=== PATIENT | female | born 1990 ===

== ENCOUNTER 2020-01-08 09:47 | Emergency (ER) | payer SELFPAY ==
--- NOTE | 2020-01-08 11:28 | Emergency Department Report ---
HPI - General Chief Complaint: Chest Pain Time Seen by Provider: 01/08/20 11:11 - HPI HPI: Room 7 The patient is a 29-year-old female present with a chief complaint of chest pain and left-sided numbness. Patient states her symptoms began 3 days ago with pain in the left chest. Patient states she also had a headache in addition to left upper extremity and left lower extremity numbness. Patient states her numbness is greatest in the left arm compared to the left leg. Patient denies dysarthria. Patient gives her pain a score of 10/10 ED Past Medical Hx - Past Medical History Previous Medical History?: No - Surgical History Past Surgical History?: No - Family History Family history: no significant - Social History Smoking Status: Never Smoker Substance Use Type: None (Denies illicit drug use) ED Review of Systems ROS: Stated complaint: STOMACH PAIN, CHEST PAIN Other details as noted in HPI Constitutional: no symptoms reported Eyes: denies: eye pain ENT: denies: throat pain Respiratory: no symptoms reported Cardiovascular: chest pain Endocrine: no symptoms reported Gastrointestinal: denies: abdominal pain Musculoskeletal: denies: back pain Neurological: headache, numbness Physical Exam - Physical Exam Vital Signs: Vital Signs 01/08/20 01/08/20 10:02 11:14 Temperature 99.4 F Pulse Rate 69 Respiratory 16 16 Rate Blood Pressure 110/75 O2 Sat by Pulse 100 Oximetry Physical Exam: GENERAL: The patient is well-developed well-nourished female sitting on stretcher not appearing to be in acute distress. [] HEENT: Normocephalic. Atraumatic. Extraocular motions are intact. Patient has moist mucous membranes. NECK: Supple. Trachea midline CHEST/LUNGS: Clear to auscultation. There is no respiratory distress noted. HEART/CARDIOVASCULAR: Regular. There is no tachycardia. There is no gallop rub or murmur. ABDOMEN: Abdomen is soft, nontender. Patient has normal bowel sounds. There is no abdominal distention. SKIN: There is no rash. There is no edema. There is no diaphoresis. NEURO: The patient is awake, alert, and oriented. The patient is cooperative. The patient has normal speech. Cranial nerves II through XII grossly intact, no drift. Patient complains of decreased sensation to the left upper and lower extremity MUSCULOSKELETAL:There is no evidence of acute injury. ED Course Vital Signs 01/08/20 01/08/20 10:02 11:14 Temperature 99.4 F Pulse Rate 69 Respiratory 16 16 Rate Blood Pressure 110/75 O2 Sat by Pulse 100 Oximetry - Consultations Consultation #1: 01/08/20 14:35 Hospitalist made aware of patient and pending CTs. ED Medical Decision Making - Lab Data Result diagrams: 01/08/20 12:05 01/08/20 12:05 - EKG Data -: EKG Interpreted by Me EKG shows normal: sinus rhythm Rate: normal - EKG Data When compared to previous EKG there are: previous EKG unavailable Interpretation: other (No ischemic changes seen) - Differential Diagnosis Complex migraine, costochondritis, PE, pericarditis, CVA Critical care attestation.: If time is entered above; I have spent that time in minutes in the direct care of this critically ill patient, excluding procedure time. ED Disposition Clinical Impression: Chest pain, Left sided numbness Disposition: OP ADMIT IP TO THIS HOSP Is pt being admited?: Yes Does the pt Need Aspirin: Yes Condition: Fair Instructions: Chest Pain (ED)
[2020-01-08 13:01] LABS: Basophils % (Auto) 0.7 % (0.0-1.8); Eosinophils # (Auto) 0.5 K/mm3 (0.0-0.4); Eosinophils % (Auto) 8.7 % (0.0-4.3); Lymphocytes # (Auto) 1.6 K/mm3 (1.2-5.4); Lymphocytes % (Auto) 27.2 % (13.4-35.0); Mean Corpuscular HGB Conc 30 % (30-34); Monocytes # (Auto) 0.3 K/mm3 (0.0-0.8); Monocytes % (Auto) 5.4 % (0.0-7.3); Platelet Count 327 K/mm3 (140-440); Red Blood Count 5.52 M/mm3 (3.65-5.03); Red Cell Distribution Width 19.5 % (13.2-15.2)
[2020-01-08 13:04] LABS: BUN/Creatinine Ratio 20; Blood Urea Nitrogen 8 mg/dL (7-17); Calcium 9.3 mg/dL (8.4-10.2); Hemolysis Index 8
[2020-01-08 13:23] LABS: Hematocrit 32.6 % (30.3-42.9); Hemoglobin 9.7 gm/dl (10.1-14.3); Mean Corpuscular Volume 59 fl (79-97)
[2020-01-08 13:25] LABS: Bacteria,Urine 1+ /HPF (Negative); Bilirubin,Urine NEG (Negative); Blood,Urine SM (Negative); Color,Urine Yellow (Yellow); Protein,Urine <15 mg/dL mg/dL (Negative); Urobilinogen,Urine < 2.0 mg/dL (<2.0)
--- NOTE | 2020-01-08 14:50 | Cat Scan Report ---
CT HEAD WITHOUT CONTRAST INDICATION / CLINICAL INFORMATION: Left-sided numbness. TECHNIQUE: All CT scans at this location are performed using CT dose reduction for ALARA by means of automated e xposure control. COMPARISON: None available. FINDINGS: HEMORRHAGE: No evidence of intracranial hemorrhage or extra-axial fluid collection. EXTRA-AXIAL SPACES: Cortical sulci, sylvian fissures and basilar cisterns have an unremarkable appear ance. VENTRICULAR SYSTEM: The ventricular system is of normal size and configuration. CEREBRAL PARENCHYMA: No areas of abnormal brain parenchymal attenuation are identified. There is no i ndication of recent infarction. MIDLINE SHIFT OR HERNIATION: There is no mass effect. CEREBELLUM / BRAINSTEM: Brainstem and cerebellum have an unremarkable appearance. INTRACRANIAL VESSELS:No abnormalities are identified on this noncontrast head CT. ORBITS: visualized portions of the orbits have an unremarkable appearance. SOFT TISSUES of HEAD: No significant abnormality. CALVARIUM: Evaluation of bone windows reveals no abnormalities. PARANASAL SINUSES / MASTOID AIR CELLS: Paranasal sinuses are free from inflammatory mucosal disease. Mastoid air cells are normally pneumatized. ADDITIONAL FINDINGS: None. IMPRESSION: 1. No acute intracranial abnormality. Signer Name: Slade Rosenbaum MD Signed: 01/08/2020 2:46 PM Workstation Name: [id number]
--- NOTE | 2020-01-08 15:29 | Cat Scan Report ---
CTA CHEST WITH CONTRAST INDICATION : Left chest pain. TECHNIQUE: Axial imaging performed through the chest, with contrast bolus timing set to maximize opa cification of the pulmonary arteries. Sagittal and coronal reformatted images. 3-plane MIP reformatte d images were obtained. All CT scans at this location are performed using CT dose reduction for ALAR A by means of automated exposure control. 100 mL of intravenous contrast administered. COMPARISON: None FINDINGS: Bolus: Contrast bolus timing is adequate. PTE: No filling defect is present to suggest PTE. Mediastinum: Heart and great vessels appear normal. No pathologic mediastinal adenopathy. Lungs: Lungs are clear. Bones: Degenerative changes in the spine with nothing acute. Upper abdomen: Limited imaging of the upper abdomen shows nothing acute. IMPRESSION: Negative for PTE. Clear lungs. Signer Name: Te Tsai Jr, MD Signed: 01/08/2020 3:25 PM Workstation Name: [id number]
[2020-01-08 17:05] VITALS: BP 104/69
[2020-01-08] MEDS ORDERED: FAMOTIDINE 20 MG/2 ML INJ IV ONE (18:10)
[2020-01-08] MEDS ORDERED: traMADol 50 MG TAB PO ONE (18:10)
[2020-01-08] MEDS ORDERED: ONDANSETRON 4 MG/2 ML INJ IV ONE (18:10)
--- NOTE | 2020-01-08 18:17 | Emergency Department Report ---
Blank Doc - Documentation Documentation: Patient was signed out to me by Dr. Kang to admit for chest pain work-up after CT head and CTA chest result. Case discussed with hospitalist who request the ER reassessment of the patient given that she has no cardiac risk factors. tenon machine operator Lianne provided translation for history and physical examination as well as results. For the last 3 to 4 days patient has had nausea, vomiting, diarrhea and left- sided neck and left-sided chest pain. They patient states since symptoms onset patient states has had decreased p.o. intake due to the symptoms. She denies melena hematochezia, hematemesis, fever, recent travel locally or internationally, recent antibiotic use, or sick contacts. Patient states that the left neck and left upper chest pain feels muscular and she has some numbness to this area as well. Pain is worse with movement and producible with palpation of her left neck and left upper chest wall. Patient also complained of some epigastric pain and dysuria. No previous abdominal surgeries reported. Patient denies family history of CAD, smoking, or any other cardiac risk factors. Patient's heart score is 0 and her initial EKG was normal and troponin were negative. 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 Her current neuro exam she complains of pain/discomfort but not specific numbness to her left arm with palpation however, she has 5/5 strength. Left lower sensation equal bilaterally. Patient had a negative CT head here without any other deficits on exam or stroke risk factors. On abdominal exam patient has some mild epigastric tenderness to palpation and has a negative Perry sign and does not have any pain over the appendix. Patient has just finished eating a food tray prior to my reevaluation. She has never vomited but does complain of persistent nausea. She has not yet received any medications during her ED stay Second troponin ordered by me is negative. LFt's and lipase added to last blood draw. Repeat EKG will also be obtained to ensure that it remains normal sinus without ischemic changes Patient is already tolerating p.o. intake even prior to medication however nausea persists. Zofran IV, Pepcid IV, and p.o. tramadol have been ordered for her symptoms Her urine is negative for infection without any signs of blood leukocytosis. mild anemia noted and pt denies gi bleeding sx. Patient received meds as ordered and additional blood work LFTs and lipase are unremarkable. Patient be discharged home with diagnosis of gastroenteritis and musculoskeletal chest pain. ED Imaging results CTA CHEST WITH CONTRAST INDICATION : Left chest pain. TECHNIQUE: Axial imaging performed through the chest, with contrast bolus timing set to maximize opacification of the pulmonary arteries. Sagittal and coronal reformatted images. 3-plane MIP reformatted images were obtained. All CT scans at this location are performed using CT dose reduction for ALARA by means of automated exposure control. 100 mL of intravenous contrast administered. COMPARISON: None FINDINGS: Bolus: Contrast bolus timing is adequate. PTE: No filling defect is present to suggest PTE. Mediastinum: Heart and great vessels appear normal. No pathologic mediastinal adenopathy. Lungs: Lungs are clear. Bones: Degenerative changes in the spine with nothing acute. Upper abdomen: Limited imaging of the upper abdomen shows nothing acute. IMPRESSION: Negative for PTE. Clear lungs. CT HEAD WITHOUT CONTRAST INDICATION / CLINICAL INFORMATION: Left-sided numbness. TECHNIQUE: All CT scans at this location are performed using CT dose reduction for ALARA by means of automated exposure control. COMPARISON: None available. FINDINGS: HEMORRHAGE: No evidence of intracranial hemorrhage or extra-axial fluid collection. EXTRA-AXIAL SPACES: Cortical sulci, sylvian fissures and basilar cisterns have an unremarkable appearance. VENTRICULAR SYSTEM: The ventricular system is of normal size and configuration. CEREBRAL PARENCHYMA: No areas of abnormal brain parenchymal attenuation are identified. There is no indication of recent infarction. MIDLINE SHIFT OR HERNIATION: There is no mass effect. CEREBELLUM / BRAINSTEM: Brainstem and cerebellum have an unremarkable appearance. INTRACRANIAL VESSELS:No abnormalities are identified on this noncontrast head CT. ORBITS: visualized portions of the orbits have an unremarkable appearance. SOFT TISSUES of HEAD: No significant abnormality. CALVARIUM: Evaluation of bone windows reveals no abnormalities. PARANASAL SINUSES / MASTOID AIR CELLS: Paranasal sinuses are free from inflammatory mucosal disease. Mastoid air cells are normally pneumatized. ADDITIONAL FINDINGS: None. IMPRESSION: 1. No acute intracranial abnormality.
[2020-01-08] MEDS ORDERED: HYDROmorphone 1 MG/1 ML INJ IV ONE (18:43)
[2020-01-08] MEDS ORDERED: cloNIDine 0.2 MG TAB PO ONE (18:43)
[2020-01-08 18:50] LABS: Alanine Aminotransferase 15 units/L (7-56); Albumin 4.4 g/dL (3.9-5)
[2020-01-08 18:55] LABS: Bilirubin,Direct < 0.2 mg/dL (0-0.2)
== END 2020-01-08 20:02 | disposition home or self-care (01) ==
LOC: ED 09:47
DX: R07.89 Other chest pain (principal); R20.0 Anesthesia of skin
CPT/HCPCS: 36415; 70450; 71275; 80048; 80076; 81001; 82550; 82553; 83690; 84484; 84703; 85025; 85379; 93005; 93010; 96374; 96375; 99284; J2405; Q9967